=== PATIENT | female | born 1990 | race Two or more races ===

== ENCOUNTER 2018-04-13 11:54 | Emergency (ER) | payer OTHER ==
[~2018-04-13] VITALS: Ht 165.1 cm; Wt 113.4 kg
--- NOTE | 2018-04-13 12:25 | Emergency Room Report ---
History of Present Illness General Chief Complaint: Lower Extremity Injury Source: Patient Present Illness HPI The patient is a 27 old female presenting for left ankle pain after tripping down one step today. This occurred 2 hours prior to arrival. She fell onto her hands and did not hit her head. She denies loss of consciousness. She felt her left ankle twisted underneath her. Pain is now an 8 out of 10 dull ache and radiates to the mid leg. Worse with movement and touch. She denies numbness or tingling. She denies any other symptoms Allergies: Coded Allergies: No Known Allergies (Unverified , 04/13/18) Patient History Past Medical History: see triage record Pertinent Family History: none Now: No Reviewed Nursing Documentation: PMH: Agreed; PSxH: Agreed Nursing Documentation-PMH Past Medical History: No Stated History Review of Systems All Other Systems: negative except mentioned in HPI Physical Exam Vital Signs Date Time Temp Pulse Resp B/P (MAP) Pulse Ox O2 Delivery O2 Flow Rate FiO2 04/13/18 12:16 98.0 94 18 124/83 95 Room Air 98.1 Sp02 EP Interpretation: reviewed, normal General Appearance: no apparent distress, alert, GCS 15, non-toxic Head: normocephalic, atraumatic Musculoskeletal: back normal, no calf tenderness, decreased range of motion - L ankle, tender - diffusely over L ankle and distal leg Neurologic: alert, oriented x3, responsive, motor strength/tone normal, sensory intact, speech normal Psychiatric: judgement/insight normal, memory normal, mood/affect normal, no suicidal/homicidal ideation Skin: normal color, no rash, warm/dry, well hydrated Procedures Splinting Splinting : Consent: Verbal Location: L ankle Pre-Made Type: TOÑA wrap Pre-Proc Neuro Vasc Exam: normal Post-Proc Neuro Vasc Exam: normal Patient Tolerated: Well Complications: None Medical Decision Making PA Attestation Dr. Sarkar is my supervising physician. Patient management was discussed with my supervising physician Diagnostic Impression: Primary Impression: Left ankle sprain Qualified Codes: S93.492A - Sprain of other ligament of left ankle, initial encounter ER Course The patient is a 27 old female presenting for left ankle pain after tripping down one step today Ddx considered include but not limited to sprain/strain, fracture, contusion Physical exam: Vitals within normal limits. No apparent distress Left ankle: There is tenderness to palpation and edema primarily over the left lateral malleolus. Limited active range of motion. Sensation intact to light touch. X-ray of the left ankle is unremarkable Left ankle placed in TOÑA wrap and the patient is provided crutches. Pain med provided. ER precautions are given. Patient given prescription for Motrin and will follow up with primary care physician. ROSSY discussed. Other X-Ray Diagnostic Results Other X-Ray Diagnostic Results : X-Ray ordered: L ankle # of Views/Limited Vs Complete: 3 View Indication: Pain EP Interpretation: Yes SUELLEN Xray: Interpretation reviewed, by supervising MD, and agrees with findings. Interpretation: no dislocation, no fractures, other - + STS Impression: Other - no fracture. + STS Electronically Signed by: Glynn Warren PA-C Last Vital Signs Date Time Temp Pulse Resp B/P (MAP) Pulse Ox O2 Delivery O2 Flow Rate FiO2 04/13/18 12:16 98.0 94 18 124/83 95 Room Air 98.1 Status: improved Disposition: HOME, SELF-CARE Condition: Improved Scripts Tramadol Hcl* (ULTRAM*) 50 Mg Tablet 50 MG ORAL Q6H PRN for For Pain, #8 TAB 0 Refills Prov: GLYNN WARREN P.A. 04/13/18 Ibuprofen* (MOTRIN*) 600 Mg Tablet 600 MG ORAL Q8H PRN for For Pain, #30 TAB 0 Refills Prov: GLYNN WARREN P.A. 04/13/18 GLYNN WARREN Apr 13, 2018 12:25
[2018-04-13] MEDS ORDERED: TRAMADOL HCL50 MG ORAL (12:58)
[2018-04-13] MEDS ORDERED: IBUPROFEN600 MG ORAL (12:58)
[2018-04-13 13:20] VITALS: BP 132/80
--- NOTE | 2018-04-15 08:16 | Diagnostic Imaging Report ---
Indication: Reason For Exam: PAIN Technique: 3 views of the left ankle Comparison: none Findings: There is soft tissue swelling over the lateral malleolus. No acute fractures. No dislocations. The joint spaces are preserved Impression: No acute process Soft tissue swelling This agrees with the preliminary interpretation provided overnight by [facility].
== END 2018-04-13 13:20 | disposition home or self-care (01) ==
LOC: EMR 13:11
DX: S93.402A Sprain of unspecified ligament of left ankle, initial encounter (principal); X50.1XXA Overexertion from prolonged static or awkward postures, initial encounter; Y92.89 Other specified places as the place of occurrence of the external cause
CPT/HCPCS: 81025; 99283